=== PATIENT | female | born 1960 | race Caucasian/White ===

== ENCOUNTER → 2016-07-31 09:25 | Day surgery (SDC) | payer BC ==
[~2016-07-31 09:25] MED LIST: Atracurium* 10 MG/ML 10 ML VIAL ONE; Buffered Lidocaine 1% SYR 3ML* 3 ML/SYR SYRINGE INTRADERM ONE; Bupivacaine 0.5% SDV PF* 30 ML VIAL ONE; Bupivacaine 0.5% W/EPI SDV* 30 ML VIAL ONE; Desflurane* 240 ML INH ONE; Dexamethasone IV* 4 MG/ML 1 ML (4 MG) IV SLOW PU ONE; Dexamethasone IV* 4 MG/ML 1 ML (4 MG) ONE; DiMENhydriNATE IV* 50 MG/ML VIAL IV PUSH PRN; EPINEPHrine AMP 1 MG/ML ONE; Famotidine IV* 10 MG/ML 2 ML (20 mg) IV ONE; Famotidine IV* 10 MG/ML 2 ML (20 mg) ONE; HYDROmorphone INJ* 1 MG/ML CARPUJECT SYRINGE IV PRN; Ketorolac INJ* 30 MG/ML 1 ML VIAL ONE; Midazolam* 1 MG/ML 5 ML VIAL (5 MG) ONE; Ondansetron INJ* 2 MG/ML VIAL IV PRN; Ondansetron INJ* 2 MG/ML VIAL ONE; Propofol* 10 MG/ML 20 ML BTL IV PUSH ONE; ROPIVACAINE 5 MG/ML 30 ML BTL (0.5%) ONE; ceFAZolin 2 GM PREMIX (*) 2 GM/50 ML BAG IVPB ONE; fentaNYL* 50 MCG/ML 2 ML VIAL (100 MCG VIAL) IV PRN; fentaNYL* 50 MCG/ML 2 ML VIAL (100 MCG VIAL) ONE; oxyCODONE/Acetamin 5/325 MG* TAB PO PRN
[2016-07-31 17:01] VITALS: BP 128/87
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
== END | disposition home or self-care (01) ==
LOC: OR 09:25
PROVIDERS: ATTEND Orthopaedic Surgery
DX: S46.012A Strain of muscle(s) and tendon(s) of the rotator cuff of left shoulder, initial encounter (principal); S43.492A Other sprain of left shoulder joint, initial encounter; I10 Essential (primary) hypertension; I34.0 Nonrheumatic mitral (valve) insufficiency; W08.XXXA Fall from other furniture, initial encounter; Y92.9 Unspecified place or not applicable
CPT/HCPCS: A9270-GY; J0171; J0690; J1100; J1885; J2250; J2405; J2704; J2795; J3010

== ENCOUNTER 2017-01-02 08:20 | Emergency (ER) | payer BC ==
[2017-01-02] MEDS ORDERED: Ondansetron ODT TAB* 4 MG PO ONE (08:56)
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
[2017-01-02 09:14] VITALS: BP 144/98
== END 2017-01-02 09:11 | disposition left against medical advice (07) ==
LOC: UCEAST 08:20
DX: S09.90XA Unspecified injury of head, initial encounter (principal); W18.39XA Other fall on same level, initial encounter; Y93.89 Activity, other specified; Y92.008 Other place in unspecified non-institutional (private) residence as the place of occurrence of the external cause; Y99.9 Unspecified external cause status; Z87.891 Personal history of nicotine dependence
CPT/HCPCS: 99212; A9270-GY; G0463

== ENCOUNTER 2017-01-02 09:22 | Emergency (ER) | payer BC ==
[2017-01-02 09:28] VITALS: BP 149/94
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
--- NOTE | 2017-01-02 10:52 | RAD ---
Indication: Fall, head injury with nausea and lower extremity weakness. CT of the brain was performed without IV contrast. Ventricular structures are midline. No midline shift is noted. The extra-axial spaces are unremarkable. There is no evidence of intracranial mass or hemorrhage. No other high or low density lesions are identified. The bony calvaria is otherwise unremarkable. Mastoid air cells and paranasal sinuses are unremarkable. Over the left frontal area there is a scalp hematoma. IMPRESSION: No intracranial mass or hemorrhage is noted. Scalp hematoma over the left frontal area. No underlying skull fracture is noted.
--- NOTE | 2017-01-02 11:12 | RAD ---
Indication: Fall with headaches, occipital upper cervical pain. CT of the cervical spine was obtained in the axial plane. Sagittal and coronal reconstructed images were obtained. The vertebral bodies appear normal in height. No evidence of spondylolisthesis or compression fracture is noted. The skull base demonstrates no fracture. Mastoid air cells are unremarkable. The C1 ring is intact. No evidence of fracture is noted. Degenerative changes of the atlantoaxial joint is noted. At C2-C3, C3-C4 there is no fracture. No central or foraminal stenosis is noted. At C4-C5 there appears to be some minimal degenerative disc disease. No fracture is identified. No foraminal stenosis is noted. At C5-C6 spondylitic ridge flattens the thecal sac. No central foraminal stenosis is noted. No fracture is noted. At C6-C7 and C7-T1 no fracture is identified. The lung apices are unremarkable. IMPRESSION: Degenerative disc disease at C5-C6 and C6-C7. No fracture of the cervical spine is noted.
[2017-01-02] MEDS ORDERED: Acetaminophen TAB* 325 MG PO ONE (12:41)
== END 2017-01-02 13:47 | disposition home or self-care (01) ==
LOC: ED 09:22
DX: S06.0X9A Concussion with loss of consciousness of unspecified duration, initial encounter (principal); S50.02XA Contusion of left elbow, initial encounter; S76.012A Strain of muscle, fascia and tendon of left hip, initial encounter; R53.83 Other fatigue; H53.149 Visual discomfort, unspecified; R11.0 Nausea; R51 Headache; Z87.891 Personal history of nicotine dependence; W19.XXXA Unspecified fall, initial encounter; Y93.9 Activity, unspecified; Y92.9 Unspecified place or not applicable
CPT/HCPCS: 70450; 72125; 99282; A9270-GY